=== PATIENT | female | born 1985 | race Caucasian/White ===

== ENCOUNTER → 2022-03-18 | Outpatient (CLI) | payer BC ==
--- NOTE | 2022-03-19 05:29 | MR ---
EXAMINATION TYPE: MR kidney wo/w con DATE OF EXAM: 03/18/2022 COMPARISON: CT scan 09/12/2021 HISTORY: Abnormal CT CONTRAST: Standard multiplanar, multisequence MRI departmental protocol images were obtained without contrast a nd with 7.5 mL intravenous Gadavist gadolinium contrast. Liver and spleen are intact. Bile ducts are not dilated. Gallbladder has normal size. There is no sig n of pancreatic mass. Stomach is intact. There is no pleural effusion. There is no adrenal mass. Kidneys have normal size. There is a rounded 1.5 cm low signal focus latera l right kidney consistent with a calculus that is also demonstrated on old CT scan. Contrast images s how otherwise fairly normal renal enhancement. The ureters are not dilated. No hydronephrosis. No madi dence of retroperitoneal adenopathy. There is normal enhancement of the portal venous system and the abdominal aorta and the inferior vena cava. There is no ascites. No sign of mesenteric edema. Lumbar spine is intact. No compression fracture. IMPRESSION: No suspicious renal mass. Nonenhancing focus lateral right kidney consistent with a calculus without change.
== END | disposition home or self-care (01) ==
LOC: RADMRIMAIN 11:18
PROVIDERS: ATTEND Urology
DX: N20.0 Calculus of kidney (principal)
CPT/HCPCS: 74183; A9585